=== PATIENT | female | born 1970 | race Caucasian/White ===

== ENCOUNTER → 2019-12-31 | Outpatient (CLI) | payer OTHER, SELFPAY ==
--- NOTE | 2019-12-31 07:33 | BI_ITS ---
MAMMOGRAPHY - BILATERAL SCREENING REASON FOR EXAM: Female, 49 years old. Routine annual screening examination. PERTINENT HISTORY: Mother with breast cancer. Aunt with breast cancer. TECHNIQUE: Digital bilateral breast mallory (3D mammographic acquisition) in the CC and MLO projections. 2-D mediolateral oblique (MLO) and craniocaudad (CC) views of both breasts were obtained. CAD: Full Field Digital Mammography with Computer Added Detection was performed. COMPARISON: Comparison is made with prior examination of March 28, 2017 and April 07, 2017. FINDINGS: Breast Composition: There are scattered areas of fibroglandular density. There are no dominant masses or suspicious calcifications. No other significant abnormalities are identified. There has been no significant change since the prior study. BI/SCREEN MAMM (CAD) W/MALLORY BILAT IMPRESSION: Stable bilateral screening mammogram. Yearly follow-up mammogram recommended. (A) ASSESSMENT CATEGORY: BIRADS Category 1: Negative. A letter regarding these results will be sent to the patient by the facility within 30 days. Approximately 10% of breast cancers are not detected by mammography. A normal mammogram should not delay biopsy of a clinically suspicious abnormality. [id number] Electronically Signed: Luis Armando Villalobos, at 8:40 EST , Service support ,
== END | disposition home or self-care (01) ==
LOC: OPBI 07:31
PROVIDERS: PCP Internal Medicine; Referring Provider Internal Medicine; Visit Provider Internal Medicine
DX: Z12.31 Encounter for screening mammogram for malignant neoplasm of breast (principal)
CPT/HCPCS: 77063; 77067

== ENCOUNTER 2020-06-08 19:43 | Emergency (ER) | payer OTHER, SELFPAY ==
[2020-06-08 19:45] VITALS: BP 143/82; PULSE 76; RESP 18; TEMP 36.7; O2SAT 96; BMI 25.3
--- NOTE | 2020-06-08 20:15 | ED.VISSUMM ---
- ER Visit Summary Date of Service: 06/08/20 Chief Complaint: Left long fingertip amputation History of Present Illness: The patient is a 49 F past medical history migraines. She is right-hand dominant. Today she was cutting lu. At 8 AM this morning. And she cut the very tip of her left long finger off. Just the soft tissue. Has been bleeding throughout the day evaluated. She is on no blood thinners. Denies any other complaints. Physical Examination: Middle-aged female accompanied by her vital signs stable afebrile. H EENT exam unremarkable. Lungs are clear. Heart regular rhythm no murmur. Patient moving all 4 extremities. Neurovascular intact. No edema. The left long finger tip just the soft tissue there is an avulsion amputation with minimal oozing. There is no pulsatile bleeding. She has full flexion-extension of the digit. Normal touch sensation. There is no signs of infection or foreign body. Test Results: None Emergency Department Course and Treatment: Left long finger wound cleaned with soap and water. Dried. Reexamine. Dermabond. Nurses will place a dressing. Tetanus updated.. Treatment Plan: Keep wound clean and dry. Return if any signs of infection. Disposition: Discharge Impression: Left long finger distal tip amputation with Dermabond repair Tetanus updated This note was generated with Animated Speech dictation software. It may contain incorrect words, spelling, and punctuation that were not noted in review of the chart prior to signing ED Disposition - Plan for ED Patient: Referrals: Geena Vázquez DO [Primary Care Provider] -
--- NOTE | 2020-06-08 20:17 | ED.DEP ---
ED Disposition - Plan for ED Patient: Disposition: Home or Assisted Living Instructions: ED Laceration Hand Referrals: Geean Vázquez, [Primary Care Provider] - As Needed Additional Instructions: Keep the wound clean and dry. Our dressing can stay on 3 to 4 days if it stays clean and dry. Turn if any signs of infection such as pus, red streaks, fever or swelling. Your tetanus was updated tonight that is good for 10 years.
[2020-06-08] MEDS: Diphth,Pertuss(Acell),Tet Vac 0.5 ML Vial IM (20:36)
== END 2020-06-08 20:56 | disposition home or self-care (01) ==
PROVIDERS: Emergency Provider Emergency Medicine; PCP Internal Medicine
DX: S68.623A Partial traumatic transphalangeal amputation of left middle finger, initial encounter (principal); Z23 Encounter for immunization; W45.8XXA Other foreign body or object entering through skin, initial encounter; Y93.H2 Activity, gardening and landscaping; Y92.89 Other specified places as the place of occurrence of the external cause; Y99.8 Other external cause status
CPT/HCPCS: 12001; 90715; 99283

== ENCOUNTER 2022-01-13 16:16 | Outpatient (CLI) | payer OTHER, SELFPAY ==
--- NOTE | 2022-01-13 16:19 | BI_ITS ---
MAMMOGRAPHY - BILATERAL SCREENING REASON FOR EXAM: Female, 51 years old. Routine annual screening examination. PERTINENT HISTORY: Mother with breast cancer. Aunt with breast cancer. Remote right excisional breast biopsy. TECHNIQUE: Digital bilateral breast mallory (3D mammographic acquisition) in the CC and MLO projections. 2-D mediolateral oblique (MLO) and craniocaudad (CC) views of both breasts were obtained. CAD: Full Field Digital Mammography with Computer Added Detection was performed. COMPARISON: Comparison is made with prior examination dated 12/31/2019 and 04/07/2017. FINDINGS: Breast Composition: There are scattered areas of fibroglandular density. There are no dominant masses or suspicious calcifications. No other significant abnormalities are identified. There has been no significant change since the prior study. BI/SCRN MAMM (CAD)W/MALLORY BILAT IMPRESSION: Stable bilateral screening mammogram. Yearly follow-up mammogram recommended. (A) ASSESSMENT CATEGORY: BIRADS Category 1: Negative. A letter regarding these results will be sent to the patient by the facility within 30 days. Approximately 10% of breast cancers are not detected by mammography. A normal mammogram should not delay biopsy of a clinically suspicious abnormality. [id number] Electronically Signed: Luis Armando Villalobos MD at 7:38 EST ,
== END 2022-01-13 23:59 | disposition home or self-care (01) ==
LOC: OPBI 16:17
PROVIDERS: PCP Internal Medicine; Visit Provider Internal Medicine
DX: Z12.31 Encounter for screening mammogram for malignant neoplasm of breast (principal); Z80.3 Family history of malignant neoplasm of breast
CPT/HCPCS: 77063; 77067

== ENCOUNTER → 2024-05-14 | Outpatient (CLI) | payer OTHER, SELFPAY ==
--- NOTE | 2024-05-14 13:46 | ECHOD_ITS ---
Reason For Study: RBBB Procedure This was a 2D Doppler, Color Flow transthoracic echocardiogram. Exam performed in department. Left Ventricle Normal size and thickness. The left ventricular ejection fraction is 60 %. Normal diastololic function. Right Ventricle Normal right ventricle. Atria The left and right atria are normal. Cannot exclude tiny PFO. Mitral Valve Normal mitral valve. Tricuspid Valve Trivial tricuspid valve insufficiency. Normal pulmonary artery pressure. Aortic Valve Trisinus/trileaflet aortic valve. Pulmonic Valve The pulmonic valve is not well visualized. Trivial pulmonic valve insufficiency. Great Vessels Normal sized aortic root. Pericardium/Pleural No pericardial effusion. MMode/2D Measurements & Calculations LVIDd: 5.4 cm IVSd: 0.97 cm Ao root diam: 3.0 cm LVIDs: 3.3 cm LVPWd: 0.86 cm LA dimension: 3.4 cm RVDd: 3.2 cm FS: 38.1 % LAV(MOD-bp): 42.0 ml LVAd ap4: 29.2 cm2 SV(MOD-sp4): 50.5 ml LAV(MOD-bp) Indexed: 23.9 ml/m2 LVLd ap4: 7.4 cm LAV(MOD-sp2): 49.2 ml EDV(MOD-sp4): 94.2 ml LAV(MOD-sp4): 34.9 ml EDV(sp4-el): 97.6 ml LVAs ap4: 18.5 cm2 LVLs ap4: 7.0 cm ESV(MOD-sp4): 43.7 ml ESV(sp4-el): 41.6 ml EF(MOD-sp4): 53.6 % EF(sp4-el): 57.4 % SV(sp4-el): 56.1 ml LA A4 area: 14.7 cm2 RA A4 area: 14.8 cm2 TAPSE: 2.3 cm Time Measurements MV dec time: 0.21 sec Doppler Measurements & Calculations MV E max jewel: 71.5 cm/sec Lat Peak E' Jewel: 13.1 cm/sec Med Peak E' Jewel: 11.2 cm/sec MV A max jewel: 74.9 cm/sec E/E' lat: 5.5 E/E' med: 6.4 MV E/A: 0.95 MV V2 max: 83.7 cm/sec MV P1/2t max jewel: 84.7 cm/sec Ao V2 max: 140.2 cm/sec MV max P.8 mmHg MV P1/2t: 73.2 msec Ao max P.9 mmHg MV V2 mean: 45.3 cm/sec MV dec slope: 338.9 cm/sec2 Ao V2 mean: 95.6 cm/sec MV mean P.99 mmHg Ao mean P.2 mmHg MV V2 VTI: 26.4 cm MVA(P1/2t): 3.0 cm2 Ao V2 VTI: 30.4 cm AV (velocity ratio): 0.72 LV V1 max: 108.1 cm/sec PA V2 max: 97.1 cm/sec TR max jewel: 199.7 cm/sec LV V1 max P.7 mmHg PA max PG (full): 1.8 mmHg TR max P.0 mmHg LV V1 mean P.4 mmHg PA V2 mean: 67.2 cm/sec LV V1 mean: 72.6 cm/sec PA mean PG (full): 1.1 mmHg LV V1 VTI: 22.0 cm ECHO/Echo Complete Interpretation Summary The left ventricular ejection fraction is 60 %. Cannot exclude tiny PFO. Ordering Physician: Geena Vázquez Referring Physician: Geena Vázquez Performed By: Nikunj Covington RCS
== END | disposition home or self-care (01) ==
PROVIDERS: PCP Internal Medicine; Referring Provider Internal Medicine; Visit Provider Internal Medicine
DX: I45.10 Unspecified right bundle-branch block (principal)
CPT/HCPCS: 93306